=== PATIENT | male | born 1940 | race Caucasian/White ===

== ENCOUNTER 2016-06-04 10:11 | Day surgery (SDC) | payer OTHER ==
[~2016-06-04] VITALS: Ht 175.3 cm; Wt 92.1 kg
[2016-06-04 11:13] VITALS: BP 208/92; PULSE 69; RESP 16; TEMP 98; O2SAT 98
[2016-06-04] MEDS ORDERED: WARF4TAB51 PO (11:19)
[2016-06-04] MEDS ORDERED: LISI10TA3 PO (11:19)
[2016-06-04] MEDS ORDERED: CARV3.12 PO (11:19)
[2016-06-04] MEDS ORDERED: TRAZ50TA12 PO (11:19)
[2016-06-04 11:29] LABS: AUTOMATED NEUTROPHIL # 5.9 TH/MM3 (1.8-7.7); BASOPHIL # 0.1 TH/MM3 (0-0.2); BASOPHIL % 0.9 % (0.0-2.0); EOSINOPHIL # 0.2 TH/MM3 (0-0.4); EOSINOPHIL % 2.8 % (0.0-4.0); HEMATOCRIT 52.4 % (39.0-51.0); HEMO FLAGS DIFF FINAL; LYMPH % 19.1 % (9.0-44.0); LYMPHOCYTE # 1.6 TH/MM3 (1.0-4.8); MEAN CELL VOLUME 93.9 FL (80.0-100.0); MEAN CORPUSCULAR HEMOGLOBIN 31.6 PG (27.0-34.0); MEAN CORPUSCULAR HGB CONC 33.6 % (32.0-36.0); MONO % 7.7 % (0.0-8.0); NEUT % 69.5 % (16.0-70.0); PLATELET COUNT 193 TH/MM3 (150-450); RED BLOOD COUNT 5.58 MIL/MM3 (4.50-5.90); RED CELL DISTRIBUTION WIDTH 14.7 % (11.6-17.2); WHITE BLOOD COUNT 8.5 TH/MM3 (4.0-11.0)
[2016-06-04 11:37] LABS: APTT (PATIENT) 47.3 SEC (24.3-30.1); INTERNATIONAL NORMALIZED RATIO 4.3 RATIO
[2016-06-04 11:56] LABS: BICARBONATE 27.2 MEQ/L (21.0-32.0)
[2016-06-04] MEDS ORDERED: SODIUM CHLORID 0.9% 500 ML INJ 500 ML IV SCH (12:00)
[2016-06-04] MEDS ORDERED: LORazepam 1 MG TAB SL SCH (12:15)
[2016-06-04 13:13] LABS: INTERNATIONAL NORMALIZED RATIO 4.4 RATIO; PROTHROMBIN TIME - PATIENT 52.1 SEC (9.8-11.6)
[2016-06-04] MEDS ORDERED: PROPOFOL 200 MG/20 ML AMP IV ONE (15:17)
[2016-06-04] MEDS ORDERED: ISOPROTERENOL HCL 1 MG/5 ML AMP ONE (15:32)
[2016-06-04] MEDS ORDERED: MIDAZOLAM HCL 2 MG/2 ML VIAL ONE (15:33)
[2016-06-04] MEDS ORDERED: VANCOMYCIN HCL 1000 MG VIAL ONE (16:14)
[2016-06-04] MEDS ORDERED: DO NOT ADM ANY ANTICOAGULANT DRUGS XX PRN ×2 (17:45→18:00)
[2016-06-04] MEDS ORDERED: LABETALOL HCL 100 MG/20 ML VIAL ONE (17:47)
[2016-06-04] MEDS ORDERED: oxyCODONE/ACETAMINOPHEN 5 MG/325 MG TAB PO PRN ×2 (18:45)
[2016-06-04] MEDS ORDERED: LORazepam 2 MG/ML VIAL IV PRN (18:45)
[2016-06-04] MEDS ORDERED: ATROPINE SULFATE 1 MG/ML VIAL IV PRN (18:45)
[2016-06-04] MEDS ORDERED: ONDANSETRON HCL 4 MG/2 ML VIAL IV PRN (18:45)
[2016-06-04] MEDS ORDERED: LIDOCAINE HCL 1% 50 ML VIAL INFIL PRN (18:45)
[2016-06-04] MEDS ORDERED: METOCLOPRAMIDE HCL 10 MG/2 ML VIAL IV PRN (18:45)
[2016-06-04] MEDS ORDERED: SODIUM CHLOR 0.9% 250 ML INJ 250 ML IV PRN (18:45)
[2016-06-04] MEDS ORDERED: BACITRACIN OINT 0.9 GM PKT TOP ONE (18:45)
[2016-06-04 19:06] VITALS: BP 175/86; PULSE 70; RESP 18; TEMP 98; O2SAT 98
[2016-06-04] MEDS ORDERED: traZODone HCL 50 MG TAB PO SCH (21:00)
[2016-06-04] MEDS: CARVEDILOL 3.125 MG TAB PO SCH (21:05)
--- NOTE | 2016-06-04 21:39 | EKG ---
Date Performed: 06/04/2016 Time Performed: 11:22:32 PTAGE: 76 years EKG: Ventricular pacing Pacemaker rhythm - no further analysis Abnormal ECG NO PREVIOUS TRACING DOCTOR: Will Morris Interpretating Date/Time 06/04/2016 21:38:22
[2016-06-05 03:00] VITALS: BP 159/87; PULSE 70; RESP 18; TEMP 97.7; O2SAT 97
[2016-06-05 04:42] LABS: INTERNATIONAL NORMALIZED RATIO 3.4 RATIO; PROTHROMBIN TIME - PATIENT 39.3 SEC (9.8-11.6)
[2016-06-05 07:00] VITALS: BP 180/47; PULSE 70; RESP 20; TEMP 98.1; O2SAT 98
[2016-06-05 08:00] VITALS: PULSE 70
[2016-06-05 09:00] VITALS: PULSE 80
[2016-06-05] MEDS ORDERED: WARFARIN SOD 2 MG TAB PO SCH (09:00)
[2016-06-05] MEDS ORDERED: LISINOPRIL 10 MG TAB PO SCH (09:00)
[2016-06-05] MEDS: CARVEDILOL 3.125 MG TAB PO SCH (09:04)
--- NOTE | 2016-06-05 09:56 | HHI.PR ---
Subjective Remarks feeling better Objective Vital Signs Date Time Temp Pulse Resp B/P Pulse Ox O2 Delivery O2 Flow Rate FiO2 06/05/16 07:00 98.1 70 20 180/47 98 06/05/16 03:00 97.7 70 18 159/87 97 06/04/16 19:06 98.0 70 18 175/86 98 06/04/16 18:35 Room Air 06/04/16 11:13 98.0 69 16 208/92 98 I/O 06/04/16 06/04/16 06/04/16 06/05/16 06/05/16 06/05/16 07:00 15:00 23:00 07:00 15:00 23:00 Intake Total 240 ml Output Total 775 ml Balance -535 ml Intake Oral 240 ml Output Urine Total 775 ml Result Diagram: 06/04/16 1103 06/04/16 1103 Imaging Alert, fully oriented Lungs: ventilated Heart: S1, S2 regular, no gallop Abdomen: soft, no mass Ext: no edema Current Medications Medications (Trade) Dose Ordered Sig/Remy Route Start Time Stop Time Status Last Admin (NS 500 ml Inj) 500 ml @ 30 mls/hr [id number] IV 06/04/16 12:00 Miscellaneous Information ALL NURSING DEPARTME... UNSCH PRN XX 06/04/16 17:45 06/05/16 17:44 (Percocet 5-325 Mg) 1 tab Q4H PRN PO 06/04/16 18:45 06/04/16 21:06 (Percocet 5-325 Mg) 2 tab Q4H PRN PO 06/04/16 18:45 (Ativan Inj) 0.5 mg UNSCH PRN IV 06/04/16 18:45 06/05/16 18:44 Atropine Sulfate 0.5 mg 0.5 mg UNSCH PRN IV 06/04/16 18:45 (NS 250 ml Inj) 250 ml @ 500 mls/hr ONCE PRN IV 06/04/16 18:45 06/05/16 18:44 (Reglan Inj) 10 mg Q4H PRN IV 06/04/16 18:45 (Zofran Inj) 4 mg Q4H PRN IV 06/04/16 18:45 (Xylocaine 1% Inj (50 ml)) 10 ml UNSCH PRN INFIL 06/04/16 18:45 06/05/16 18:44 (Coreg) 3.125 mg BID PO 06/04/16 21:00 06/05/16 09:04 (Prinivil) 10 mg DAILY PO 06/05/16 09:00 06/05/16 09:03 (Desyrel) 50 mg HS PO 06/04/16 21:00 06/04/16 21:05 Assessment and Plan Problem List: (1) Atrial flutter Status: Acute Plan: In sinus rhythm SP ablation Will be DH Follow up as scheduled (2) CHF (congestive heart failure) Status: Acute Plan: on optimal medical management. (3) Biventricular ICD (implantable cardioverter-defibrillator) in place Status: Acute Plan: BIV pacing Device well functioning Lisha Singer MD Jun 05, 2016 09:56
[2016-06-05 10:00] VITALS: PULSE 74
--- NOTE | 2016-06-05 10:42 | MA ---
cc: RC PERSAUD M.D. DATE: 06/05/2016 PROCEDURE Electrophysiology study, CS cannulation, 3-D mapping, radiofrequency ablation of atrial flutter as well as AV node modification, biventricular pacer defibrillator reprogramming. INDICATION Mr. Nelson is a 76-year-old gentleman with congestive heart failure, cardiomyopathy, previous biventricular pacer defibrillator insertion, episode of defibrillatory shock due to atrial flutter, atrial tachyarrhythmia, to undergo electrophysiology study and ablation. The risks, the nature and the benefit of the procedure are clearly stated to him. The risks include pneumothorax, cardiac perforation, stroke, need for open heart surgery and even . He understood and agreed to proceed. PROCEDURE After written informed consent was obtained, the patient was brought to the EP lab where he was prepped and draped in the usual sterile fashion. Conscious sedation was initiated and maintained throughout the procedure by anesthesiologist. Once sedation was verified, the biventricular pacer defibrillator was reprogrammed to VVI 40. Then the right and left inguinal area was anesthetized with 2% Xylocaine. Using modified Seldinger technique, the left femoral vein was cannulated on three occasions, three guidewires were advanced. Over the wire three 5-Iranian Hemaquet were advanced. Then the right femoral vein was cannulated on two occasions, two guidewires were advanced. Over the wire a 6 and 8-Iranian Hemaquet were advanced. Then under fluoroscopic guidance through the 6 and 5-Iranian Hemaquet, four 5-Iranian Bryan curved quadripolar electrophysiology catheter advanced and placed on the His, coronary sinus, upper right atrium, right ventricular apex. Basic interval was measured. The patient was in sinus rhythm. Then atrial pacing protocol was performed, incremental pacing at the proximal pole of the coronary sinus. Supraventricular tachycardia with intracardiac characteristic of atrial flutter was induced. . Entrainment was positive. Cycle length was around 220 milliseconds. Then through the 8-Iranian Hemaquet, a Cordis Butts F curve 8 mm mapping radiofrequency ablation catheter was advanced. Using [employer] endocardial solution mapping system a three-dimensional configuration of the right atrium was obtained. Then the catheter was at the tricuspid valve annulus. Critical isthmus was mapped. Radiofrequency energy was delivered. During ablation the patient converted into left atrial tachyarrhythmia, then atrial fibrillation. At that point, I decided to ablate close to modify the AV node to avoid further defibrillatory shock. AV node was mapped. There was junction in modified. There was a junctional rhythm at around 40 beats per minute. At that point I did proceed with cardioversion. A 200 sync biphasic joule was delivered that converted the patient into sinus rhythm. Then Isuprel infusion was initiated. No other tachyarrhythmia was induced. At that point the procedure was complete. All catheters were removed. The biventricular pacer was reprogrammed to DDD 70. The patient is going to be transferred to the recovery room. No incident report. The patient tolerated the Procedure. Blood loss was minimal. 1. Electrocardiogram. At baseline the patient was A sensed, V paced. Postprocedure the patient was A sensed, V paced. 2. Basic interval. Base cycle length was around 700 milliseconds. 3. Tachyarrhythmia. Atrial flutter was mapped and ablated. Ablation was successful. AV node was modified. Ablation was successful. Atrial fibrillation was cardioverted. CONCLUSION Successful electrophysiology study, mapping, radiofrequency ablation of atrial flutter, AV node modification and cardioversion of atrial fibrillation, successful biventricular pacer defibrillator reprogramming. COMMENT AND RECOMMENDATION The patient is going to be transferred to the telemetry unit. Will be observed. If stable can be discharged home in the morning. MD JOSE Harris/TLL /9:51 AM /10:19 AM
--- NOTE | 2016-06-05 19:06 | EKG ---
Date Performed: 06/05/2016 Time Performed: 06:43:46 PTAGE: 76 years EKG: Ventricular pacing Pacemaker rhythm - no further analysis Abnormal ECG PREVIOUS TRACING : 06/04/2016 11.22 Compared to prior tracing no significant change DOCTOR: Victorino Abrams Interpretating Date/Time 06/05/2016 19:05:30
== END 2016-06-05 11:28 | disposition home or self-care (01) ==
LOC: HCAT 10:11 → HDIC 10:13 → HCIS 18:50 → HCAT 06-05 11:28
PROVIDERS: ATTEND Internal Medicine Interventional Cardiology
DX: I48.3 Typical atrial flutter (principal); I11.0 Hypertensive heart disease with heart failure; I50.9 Heart failure, unspecified; Z95.810 Presence of automatic (implantable) cardiac defibrillator
CPT/HCPCS: 80048; 85025; 85610; 85730; 86850; 86900; 86901; 93005; 93613; 93623; 93653; C1730; C1732; C2630; J2250; J3010; J3370